=== PATIENT | female | born 1950 | race Asian ===

== ENCOUNTER 2024-08-12 14:37 | Emergency (ER) | payer MEDICARE, BC, SELFPAY ==
[2024-08-12] VITALS (7 sets, daily range): BP systolic 128–139; BP diastolic 73–93; BMI 18.7
[2024-08-12 14:58] LABS: % Basophils 0.3 % (0-2); % Immature Granulocytes 0.4 % (0-0.5); % Lymphocytes 7.4 % (20.5-51.1); % Monocytes 5.3 % (1.7-9.3); % Neutrophils 86.6 % (42.2-75.2); Absolute Lymphocytes 0.8 10^3/uL (1.2-3.4); Absolute Monocytes 0.5 10^3/uL (0.1-0.6); Absolute Neutrophils 8.7 10^3/uL (1.4-6.5); Hemoglobin 13.8 g/dL (12.0-16.0); Mean Corp Hgb Conc. 34.5 g/dL (33.0-37.0); Mean Corpuscular Hgb 30.1 pg (27.0-31.0); Mean Corpuscular Volume 87.1 fL (81.0-99.0); Mean Platelet Volume 8.9 fL (7.4-10.4); Nucleated Red Blood Cells % 0 %; Platelet Count 188 10^3/uL (130-400); Red Blood Cell Count 4.59 10^6/uL (4.20-5.40); Red Cell Dist. Width 13.3 % (11.5-14.5); White Blood Cell Count 10.1 10^3/uL (4.8-10.8)
[2024-08-12 15:16] LABS: ALT (SGPT) 47 U/L (0-35); AST (SGOT) 46 U/L (14-36); Albumin 4.7 g/dl (3.5-5.0); Alkaline Phosphatase 121 U/L (38-126); Blood Urea Nitrogen 12 mg/dl (7-17); Calcium 9.3 mg/dl (8.4-10.2); Carbon Dioxide 27 mmol/L (22-30); Chloride 98 mmol/L (98-107); Glucose 183 mg/dl (70-99); Potassium 3.7 mmol/L (3.5-5.1); Sodium 135 mmol/L (135-145); Total Bilirubin 0.3 mg/dl (0.2-1.3); Total Protein 6.9 g/dl (6.3-8.2); eGFR > 60.00
[2024-08-12 15:27] LABS: Troponin I < 0.012 ng/ml
--- NOTE | 2024-08-12 17:13 | ED.GENMED ---
History of Present Illness
<DOROTA Cabello - Last Filed: 08/12/24 19:36>
General
Chief Complaint: Cardiac Symptoms
Source: patient
Time Seen by Provider: 08/12/24 17:12
Nursing documentation reviewed up to this point in time: agreed with
History of Present Illness
History of Present Illness:
Patient is a 74 year old female with a history of calcifications is presenting to the ED with an elevated heart rate x 2 hours. Patient states after she ate breakfast consisting of oatmeal and eggs this morning she had a bout of nausea and diarrhea.
Denies blood in the stool. She drank water to prevent her from feeling dehydrated and was able to keep it down. She states a around 3pm today she felt her heart rate elevated and checked it with a rate of 121. She called her shear operator helper who told
her to come here with concerns of afib. She denies any chest pain. Patient states the diarrhea followed by elevated heart rate has happened before a year ago, but resolved spontaneously. She has not tried any medication for this. She admits to mild
weakness in her arms and legs yesterday but not currently. She denies sob fever vomiting dizziness numbness tingling.
Patient has a history of aortic calcifications but denies a history of [place] CAD ACS. She has a family history of CAD in her mom and dad. 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
Review of Systems
<DOROTA Cabello - Last Filed: 08/12/24 19:36>
Review of Systems
Allergies reviewed?: Yes
Constitutional: Reports no symptoms
Respiratory: Reports no symptoms
Cardiac: Reports palpitations
ABD/GI: Reports nausea and diarrhea
Neurological: Reports no symptoms
Phy Exam
<DOROTA Cabello - Last Filed: 08/12/24 19:36>
General Physical Exam
General Presentation: well appearing
General age: appears stated age
General Habitus: elderly
General Hydration: appears well hydrated
Cardiovascular Exam
Cardiovascular Exam: no edema, no gallop, no JVD, no murmur, normal peripheral pulses and tachycardia
Pulmonary Exam
Pulmonary Exam: lungs clear, no respiratory distress, no rales, chest non tender, no crackles, no rhonchi, no stridor, no wheezing and no cough
Course
<DOROTA Cabello - Last Filed: 08/12/24 19:36>
Orders/Labs/Results
Orders:
Orders
08/12/24 14:39
Electrocardiogram (*1) Urgent
Reason for Study: Chest Pain
EKG- Treatment ONCE
08/12/24 14:50
Complete Blood Count/With Diff Urgent
Comprehensive Metabolic Panel Urgent
Troponin I Urgent
08/12/24 18:10
0.9% Sodium Chloride 1000 ml [Nss] 1,000 ml IV BOLUS
08/12/24 19:49
Electrocardiogram (*1) Urgent
Reason for Study: Palpitations
EKG- Treatment ONCE
08/12/24 19:54
TSH Reflex To Free T4 Urgent
Troponin I Urgent
Abnormal Lab Results
08/12/24
14:50
Absolute Neuts (auto) 8.7 H 10^3/uL
(1.4-6.5)
Absolute Lymphs (auto) 0.8 L 10^3/uL
(1.2-3.4)
Neutrophils % 86.6 H %
(42.2-75.2)
Lymphocytes % 7.4 L %
(20.5-51.1)
Creatinine 0.5 L mg/dL
(0.6-1.0)
Glucose 183 H mg/dl
(70-99)
AST 46 H U/L
(14-36)
ALT 47 H U/L
(0-35)
08/12/24 14:50
08/12/24 14:50
Vital Signs
Initial and Last Documented VS:
Initial Vital Signs
Temp Pulse Resp BP Pulse Ox
98.2 F 104 20 139/93 98
08/12/24 14:41 08/12/24 14:41 08/12/24 14:41 08/12/24 14:41 08/12/24 14:41
Last Documented Vital Signs
Temp Pulse Resp BP Pulse Ox
98.2 F 82 17 132/77 96
08/12/24 14:41 08/12/24 20:15 08/12/24 20:15 08/12/24 20:00 08/12/24 20:15
Fcolt;Eric Curtis, DO - Last Filed: 08/12/24 20:50>
Orders/Labs/Results
Orders:
Orders
08/12/24 14:39
Electrocardiogram (*1) Urgent
Reason for Study: Chest Pain
EKG- Treatment ONCE
08/12/24 14:50
Complete Blood Count/With Diff Urgent
Comprehensive Metabolic Panel Urgent
Troponin I Urgent
08/12/24 18:10
0.9% Sodium Chloride 1000 ml [Nss] 1,000 ml IV BOLUS
08/12/24 19:49
Electrocardiogram (*1) Urgent
Reason for Study: Palpitations
EKG- Treatment ONCE
08/12/24 19:54
TSH Reflex To Free T4 Urgent
Troponin I Urgent
Abnormal Lab Results
08/12/24
14:50
Absolute Neuts (auto) 8.7 H 10^3/uL
(1.4-6.5)
Absolute Lymphs (auto) 0.8 L 10^3/uL
(1.2-3.4)
Neutrophils % 86.6 H %
(42.2-75.2)
Lymphocytes % 7.4 L %
(20.5-51.1)
Creatinine 0.5 L mg/dL
(0.6-1.0)
Glucose 183 H mg/dl
(70-99)
AST 46 H U/L
(14-36)
ALT 47 H U/L
(0-35)
08/12/24 14:50
08/12/24 14:50
Vital Signs
Initial and Last Documented VS:
Initial Vital Signs
Temp Pulse Resp BP Pulse Ox
98.2 F 104 20 139/93 98
08/12/24 14:41 08/12/24 14:41 08/12/24 14:41 08/12/24 14:41 08/12/24 14:41
Last Documented Vital Signs
Temp Pulse Resp BP Pulse Ox
98.2 F 82 17 132/77 96
08/12/24 14:41 08/12/24 20:15 08/12/24 20:15 08/12/24 20:00 08/12/24 20:15
<DOROTA Cabello - Last Filed: 08/12/24 19:36>
MDM/Problems Addressed
Differential Diagnosis Includes:
stable angina, anxiety,
MDM/Problems Addressed:
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
<DOROTA Cabello - Last Filed: 08/12/24 19:36>
*[employer] Faculty Member Interpretation
Rate: tachycardiac
Interpretation: normal
Rhythm: sinus
*Critical Care Note
Total Time (30-74mins, 75-104mins- exclusive of procedures): Not Applicable
ED Attending Note
<DOROTA Cabello - Last Filed: 08/12/24 19:36>
-
Portions of this chart may have been created with voice recognition software.� Occasional wrong word or��sound alike� substitutions may have occurred due to the inherent limitations of voice recognition software.
<Eric Curtis, DO - Last Filed: 08/12/24 20:50>
ED Attending Note
Patient seen and examined by attending physician: Yes
I performed the substantive portion of visit, reviewed & personally made and approve the management plan that is documented in note by myself or REGINALD.: Yes
ED Attending Note:
This a pleasant 74-year-old female that presents with palpitations. She states that for the last 2 hours her heart rate has been elevated. 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 She took an EKG on her
Apple Watch which also showed a tachycardic rate. Patient had a bout of nausea and diarrhea this morning. She drank extra water to keep from getting dehydrated. Patient reports no chest pain or shortness of breath. Patient does see a
shear operator helper at [facility] who advised her to come to the emergency department to rule out atrial fibrillation. States that she is feeling better in the emergency department. Patient was seen in conjunction with the PA student. I
have reviewed and agree with the history and treatment plan presented. On my independent physical exam, patient is awake, alert, and oriented x3, no acute distress. Her heart is mildly tachycardic at a rate of 102. Monitor shows sinus rhythm. No
ectopy noted on the monitor. Lungs are clear to auscultation bilaterally without wheezes rales or rhonchi present. There is no abdominal distention. No edema in the extremities.
Reviewed labs. Some mild dehydration seen on the labs. Will give a liter of fluids and reassess. Repeat troponin pending. TSH pending.
Discharge Plan
Departure
Patient Disposition: Home (Routine Discharge)
Date of Disposition: 08/12/24
Time of Disposition: 20:48
Patient with high blood pressure during this ER visit?: Yes
Condition: Good
Discharge Problem:
Acute dehydration, Palpitations
Instructions: BLOOD PRESSURE, Palpitations ED, Dehydration, Adult ED
Prescriptions:
No Action
amitriptyline 10 mg Tablet
5 mg PO HS
hyoscyamine sulfate [HyoMax-SL] 0.125 mg Tablet, Sublingual
0.125 mg PO QID PRN (Reason: stomach cramps)
gabapentin 300 mg Capsule
300 mg PO HS
diltiazem HCl 120 mg Capsule,Extended Release 24hr
120 mg PO DAILY
omeprazole 20 mg Tablet,Delayed Release (Dr/Ec)
20 mg PO DAILY
cholecalciferol (vitamin D3) [Vitamin D3] 50 mcg (2,000 unit) Tablet
50 mcg PO DAILY
Referrals:
UNKNOWN - PT DOES,NOT KNOW [Unknown Provider] -
[facility] [Outside]
Activity Restrictions/Additional Instructions:
Please follow-up with your shear operator helper, as directed
It was a pleasure meeting you and taking part in your care. We hope for your continued healing and wellness.
Please read discharge instructions in their entirety. However, they are for general education and may not describe your exact diagnosis at discharge. Information on your ER visit and medical conditions were discussed with you along with appropriate
follow up information...
If indicated, please take your medications as instructed and indicated on discharge paperwork.
Please schedule a follow up appointment as directed. Call to schedule an appointment
Please return to the emergency department with ANY change in, persisting, or worsening of symptoms. If any of your symptoms do not improve, or persist, or become more severe within 6-12 hours, please return to the emergency department for further
care.
Please return to the emergency department if you develop a headache, neck pain/stiffness, fever greater than 100.4F, chest pain, shortness of breath, persistent nausea, vomiting, slurred speech, difficulty walking, numbness/tingling, weakness, signs
of infection or any other symptoms that are worrisome to you.
If you have any questions or concerns please do not hesitate to call the Hospital at or E-mail me directly at [email or web address]
Interventions
Interventions:
*Risk Screen - Suicide Last Done: 08/12/24 14:41
*General Assessment Last Done: 08/12/24 16:51
*Neglect/Abuse Screening Last Done: 08/12/24 14:41
ED- Fall Risk Assessment Last Done: 08/12/24 16:51
*ED COVID-19 Vaccine History Last Done: 08/12/24 16:51
ED- Pulmonary Assessment Last Done: 08/12/24 16:51
ED- Cardiac Assessment Last Done: 08/12/24 16:51
Discharge Date and Time
Print Language: TRINIDADIAN
[2024-08-12] MEDS: NSS 1000 IV (20:17)
[2024-08-12 20:27] LABS: Troponin I < 0.012 ng/ml
[2024-08-12 20:52] LABS: TSH Reflex To Free T4 0.38 uIU/ml (0.47-4.68)
[2024-08-12 21:21] LABS: Free T4 1.29 ng/dl (0.78-2.19)
== END 2024-08-12 21:24 | disposition home or self-care (01) ==
LOC: EMR 14:37
PROVIDERS: Emergency Medicine; EMERGENCY PHYSICIAN Student in an Organized Health Care Education/Training Program; FAMILY PHYSICIAN Internal Medicine
DX: E86.0 Dehydration (principal); R00.2 Palpitations; R11.0 Nausea; R19.7 Diarrhea, unspecified; R03.0 Elevated blood-pressure reading, without diagnosis of hypertension; M19.90 Unspecified osteoarthritis, unspecified site; K52.9 Noninfective gastroenteritis and colitis, unspecified; K21.9 Gastro-esophageal reflux disease without esophagitis; Z85.118 Personal history of other malignant neoplasm of bronchus and lung; Z88.1 Allergy status to other antibiotic agents; Z90.2 Acquired absence of lung [part of]
CPT/HCPCS: 99284; 96360; 80053; 84439; 84443; 84484; 85025; 93005